=== PATIENT | male | born 1995 | race Caucasian/White ===

== ENCOUNTER 2024-01-23 20:36 | Emergency (ER) | payer BC, SELFPAY ==
[2024-01-23 20:43] VITALS: BP 140/93; BMI 30.8
--- NOTE | 2024-01-23 23:06 | ED.GENMED ---
History of Present Illness
General
Chief Complaint: Extremity Pain (non-traumatic)
Source: patient
Exam Limitations: none
Time Seen by Provider: 01/23/24 21:06
Nursing documentation reviewed up to this point in time: agreed with
History of Present Illness
History of Present Illness:
28-year-old male with past medical history of anxiety presenting to the emergency department today with concerns of right-sided heel discomfort after feeling a pop at home. He thinks it could be his Achilles. He claims that he was playing golf
today felt very tight went to stand up quickly today and felt a tearing sensation to the bottom of his posterior heel. Denies additional concerns otherwise.
Past History
Past History
ED Past Medical History: None
ED Past Surgical History: None
Social History
Tobacco: Other (Occasional cigar)
Alcohol: Occasional
Personal: Single
Living: with family
Employment: Student
Family History
Family History: Negative Diabetes, Hypertension or CAD
Review of Systems
Review of Systems
Allergies reviewed?: Yes
All Other Systems: ROS reviewed and negative except as documented in HPI and ROS
Phy Exam
Physical Exam
Physical Exam:
GENERAL: Alert , in no apparent distress
EYE: pupils equal and reactive
NECK: Supple, no significant adenopathy.
ENT: o/p clr, mmm.
CARDIAC: Regular rate and rhythm .
LUNGS: Clear breath sounds bilaterally, no acute respiratory distress, no wheezes/rales/rhonchi
ABDOMEN: Soft, without focal tenderness, no r/g, no cvat
NEUROLOGICAL: Alert and oriented, no focal neuro deficits
SKIN: Warm and dry, skin intact.
MUSCULOSKELETAL: Swelling discomfort to the right distal posterior heel no pain to the inferior aspect of to the sole increased discomfort with stretching of the Achilles there was movement of the foot with gastroc squeeze no edema, well perfused.
PSYCH: Normal and appropriate interaction.
Course
Orders/Labs/Results
Orders:
Orders
01/23/24 21:49
Calcaneus, Right 2 View [CR Heel/os Calcis - Right 2 Vw] Urgent
Comment:
Reason For Exam: right heel pain
01/23/24 23:07
Aspirin 325 mg PO NOW STA
01/23/24 23:10
Crutches-Treatment ONCE
Vital Signs
Initial and Last Documented VS:
Initial Vital Signs
Temp Pulse Resp BP Pulse Ox
98 F 92 16 140/93 98
01/23/24 20:43 01/23/24 20:43 01/23/24 20:43 01/23/24 20:43 01/23/24 20:43
Last Documented Vital Signs
Temp Pulse Resp BP Pulse Ox
98 F 92 16 140/93 98
01/23/24 20:43 01/23/24 20:43 01/23/24 20:43 01/23/24 20:43 01/23/24 20:43
Procedures
Splinting/Sling Placement
Right Ankle:
Procedure completed by: Myself
Pre-splint extermity exam: neurovascular intact
Type of splint: posterior short leg
Splint material: fiberglass
Splint checked by provider?: Yes
MDM/Problems Addressed
MDM/Problems Addressed:
28-year-old male presenting to the emergency department today with concerns of a tearing sensation to his distal Achilles region. Patient did have connection of the Achilles and negative Garcia squeeze test. Patient with likely partial Achilles
tear with description and increased discomfort with stretching of the Achilles though the Achilles is intact. Patient was placed in a plantarflexion splint advised to be nonweightbearing for now and close orthopedic follow-up for further
recommendations and assessment. Return precautions given.
*Critical Care Note
Total Time (30-74mins, 75-104mins- exclusive of procedures): Not Applicable
ED Attending Note
-
Portions of this chart may have been created with voice recognition software.� Occasional wrong word or��sound alike� substitutions may have occurred due to the inherent limitations of voice recognition software.
Discharge Plan
Departure
Patient Disposition: Home (Routine Discharge)
Date of Disposition: 01/23/24
Time of Disposition: 23:08
Patient with high blood pressure during this ER visit?: No
Condition: Good
Covid-19: Not Applicable
Discharge Problem:
Achilles rupture, right
Instructions: Achilles tendon injury
Prescriptions:
No Action
azithromycin 250 MG tablet
250 mg PO DAILY
omeprazole 20 MG capsule,delayed release(DR/EC)
20 mg PO DAILY Qty: 20 0RF
Referrals:
Thelma Jeffrey I., [Active] - Follow up in 5-7 days
Christiano Cali MD [Active] - Follow up in 5-7 days
Activity Restrictions/Additional Instructions:
You came to the emergency department with concerns of a likely injury to your Achilles tendon. Here you were given a splint. Please remain nonweightbearing until follow-up with orthopedics this week. Return to the emergency department for any
worsening, new or concerning symptoms.
Interventions
Interventions:
*Risk Screen - Suicide Last Done: 01/23/24 20:43
*General Assessment Last Done: 01/23/24 22:08
*Neglect/Abuse Screening Last Done: 01/23/24 20:43
ED- Fall Risk Assessment Last Done: 01/23/24 22:02
*ED COVID-19 Vaccine History Last Done: 01/23/24 22:08
ED-Skin Assessment Last Done: 01/23/24 22:05
ED-Peripheral Vascular Assessment Last Done: 01/23/24 22:02
ED-Musculoskeletal Assessment Last Done: 01/23/24 22:02
Discharge Date and Time
Print Language: LIBERIAN
[2024-01-23] MEDS: ASPIRIN 325 MG PO (23:14)
== END 2024-01-23 23:33 | disposition home or self-care (01) ==
LOC: EMR 20:36
PROVIDERS: EMERGENCY PHYSICIAN Emergency Medicine; FAMILY PHYSICIAN Family Medicine
DX: S86.011A Strain of right Achilles tendon, initial encounter (principal); X50.1XXA Overexertion from prolonged static or awkward postures, initial encounter
CPT/HCPCS: 99283; 29515; 73650

== ENCOUNTER 2024-01-25 18:49 | Emergency (ER) | payer BC, SELFPAY ==
[2024-01-25 18:52] VITALS: BP 146/100
--- NOTE | 2024-01-25 20:52 | ED.GENMED ---
History of Present Illness
General
Chief Complaint: Musculo-Skeletal Complaint
Source: patient
Time Seen by Provider: 01/25/24 20:29
History of Present Illness
History of Present Illness:
28-year-old male presenting emergency department for reevaluation after he was diagnosed with a suspected partial right Achilles tendon rupture last week. Patient states that he was placed in a splint and was recommended to follow-up with
orthopedics and he was able to make an appointment for this coming Thursday with Dr. Cali at [facility]. Patient states he has been taking aspirin for pain and had a leftover oxycodone from a previous injury which she took last night and
today but with minimal relief of pain. He denies any new symptoms or injuries. He is also denying any focal weakness or numbness paresthesia or numbness, color changes to the extremity. He notes pain does seem to be somewhat improved with his leg
being elevated.
Past History
Past History
ED Past Medical History: Psychiatric
ED Past Surgical History: None
Social History
Tobacco: Other (Occasional cigar)
Alcohol: Occasional
Drug: None
Personal:
Living: with family
Employment: Student
Family History
Family History: Negative Diabetes, Hypertension or CAD
Review of Systems
Review of Systems
All Other Systems: ROS reviewed and negative except as documented in HPI and ROS
Phy Exam
Physical Exam
Physical Exam:
GENERAL: Alert , in no apparent distress but does appear uncomfortable
EYE: conjunctiva clear
Head: Normocephalic atraumatic
NECK: Supple,
ENT: mmm.
LUNGS: no acute respiratory distress
NEUROLOGICAL: Alert and oriented
SKIN: Warm and dry, skin intact.
MUSCULOSKELETAL: Right lower extremity: Posterior short leg splint in place. Moderate soft tissue swelling around the ankle noted. Cap refills less than 2 seconds. Sensation grossly intact to light touch. Patient is able to range of motion
digits without any difficulty. Palpable pedal pulse
PSYCH: Normal and appropriate interaction.
Scores
Heart Failure Risk
Heart Failure Risk Score: Not Applicable
Heart Score for Chest Pain Patients
STEMI patient?: Not applicable
Withdrawal Assessment of Alcohol
Withdrawal Assessment Completed?: Not applicable
Course
Orders/Labs/Results
Orders:
Orders
01/25/24 20:42
Ibuprofen [Motrin] 800 mg PO NOW STA
Oxycodone/Acetaminophen [Percocet 5/325] 1 tablet PO NOW STA
Vital Signs
Initial and Last Documented VS:
Initial Vital Signs
Temp Pulse Resp BP Pulse Ox
97.5 F 91 18 146/100 99
01/25/24 18:52 01/25/24 18:52 01/25/24 18:52 01/25/24 18:52 01/25/24 18:52
Last Documented Vital Signs
Temp Pulse Resp BP Pulse Ox
97.5 F 91 18 146/100 99
01/25/24 18:52 01/25/24 18:52 01/25/24 18:52 01/25/24 18:52 01/25/24 18:52
MDM/Problems Addressed
Differential Diagnosis Includes:
Achilles tendon rupture, gastrocnemius muscle strain, soleus muscle strain, no concern for fracture or compartment syndrome
MDM/Problems Addressed:
28-year-old male presenting to the emergency department for evaluation of worsening pain to the right lower extremity in the setting of a recent injury and suspect Achilles tendon rupture. Patient was able to make an appointment with Ortho for this
coming Thursday. He has been taking aspirin for pain and did take 2 separate doses of an leftover oxycodone with minimal relief. Advised instead of taking aspirin he take Motrin/ibuprofen. Will provide with a new prescription for oxycodone.
Advised continued ice and elevation. Continue follow-up with orthopedics as scheduled. Aware of return precautions to ER but otherwise stable for discharge home. I did also unwrap patient's splint and rewrapped and patient notes this seemed to
somewhat improve his symptoms as well.
*Pulse Oximetry
Patient hypoxic: no
*Critical Care Note
Total Time (30-74mins, 75-104mins- exclusive of procedures): Not Applicable
Data Reviewed
Review of Other/Old Records Reveals: Radiology Studies
Source: patient and spouse
ED Attending Note
-
Portions of this chart may have been created with voice recognition software.� Occasional wrong word or��sound alike� substitutions may have occurred due to the inherent limitations of voice recognition software.
Discharge Plan
Departure
Patient Disposition: Home (Routine Discharge)
Date of Disposition: 01/25/24
Time of Disposition: 20:52
Patient with high blood pressure during this ER visit?: Yes
Discharge Problem:
Rupture of right Achilles tendon
Instructions: Achilles Tendon Rupture (DC)
Prescriptions:
New
oxycodone-acetaminophen [Percocet] 5-325 mg tablet
1 tab PO Q6HPRN PRN (Reason: pain) Qty: 8 0RF
No Action
azithromycin 250 MG tablet
250 mg PO DAILY
omeprazole 20 MG capsule,delayed release(DR/EC)
20 mg PO DAILY Qty: 20 0RF
Referrals:
Jr Che MD [Family Provider] -
Interventions
Interventions:
*Risk Screen - Suicide Last Done: 01/25/24 20:06
*General Assessment Last Done: 01/25/24 20:06
*Neglect/Abuse Screening Last Done: 01/25/24 20:06
*Nursing Disposition Last Done: 01/25/24 21:01
ED-Musculoskeletal Assessment Last Done: 01/25/24 20:06
Discharge Date and Time
Print Language: GREENLANDIC
[2024-01-25] MEDS: PERCOCET 5/325 1 TABLET PO (20:53)
[2024-01-25] MEDS: MOTRIN 800 MG PO (20:53)
[2024-01-25 21:00] VITALS: BP 149/100
[2024-01-25 21:01] VITALS: BP 149/100
== END 2024-01-25 21:02 | disposition home or self-care (01) ==
LOC: EMR 18:49
PROVIDERS: EMERGENCY PHYSICIAN Emergency Medicine; FAMILY PHYSICIAN Family Medicine
DX: S86.011A Strain of right Achilles tendon, initial encounter (principal); M25.471 Effusion, right ankle; M79.604 Pain in right leg; X58.XXXA Exposure to other specified factors, initial encounter; R03.0 Elevated blood-pressure reading, without diagnosis of hypertension; F17.290 Nicotine dependence, other tobacco product, uncomplicated
CPT/HCPCS: 99283

== ENCOUNTER → 2024-09-26 11:27 | Outpatient (REF) | payer BC, SELFPAY | LOC: DHSLP 11:27 | PROVIDERS: ATTENDING PHYSICIAN Internal Medicine Critical Care Medicine | DX: G47.30 Sleep apnea, unspecified (principal); R06.83 Snoring | CPT/HCPCS: 95800 ==

== ENCOUNTER 2025-06-05 14:00 | Emergency (ER) | payer BC, SELFPAY ==
[2025-06-05 14:09] VITALS: BP 120/92
--- NOTE | 2025-06-05 14:29 | ED.GENMED ---
History of Present Illness
General
Chief Complaint: Anxiety
Source: patient and spouse
Exam Limitations: none
Time Seen by Provider: 06/05/25 14:15
History of Present Illness
History of Present Illness:
29-year-old male complaining of episodes of muscle spasm. Appears to be mostly arms and chest. Although slightly the legs. These happen out of the blue and have been going on for about an hour. They come and go. Patient feels fine between
episodes. He is under significant stress. He did take an Ativan that he takes occasionally with possible slight relief. No other unusual symptoms denying headache chest pain shortness of breath fever chills rigors or any other complaints.
Past History
Past History
ED Past Medical History: Psychiatric
ED Past Surgical History: None
Social History
Tobacco: Other (Occasional cigar)
Alcohol: Occasional
Drug: None
Personal:
Living: with family
Employment: Student
Family History
Family History: Negative Diabetes, Hypertension or CAD
Review of Systems
Review of Systems
All Other Systems: Not applicable
Constitutional: Denies fever or chills
Respiratory: Reports no symptoms
Cardiac: Reports no symptoms
ABD/GI: Reports no symptoms
Phy Exam
Physical Exam
Physical Exam:
GENERAL: Alert and oriented in no apparent distress
EYE: Orbits normal.
NECK: Supple, nontender
CARDIAC: Regular rate and rhythm without any obvious murmurs.
LUNGS: Clear breath sounds,normal
ABDOMEN: Soft, without focal tenderness or distention
NEUROLOGICAL: Alert and oriented , grossly non-focal. Speech normal. No unusual or hyper patellar reflexes. No clonus. No rigidity. Patient had 2 episodes while I was in the room and remained awake during these of clenching of both hands
flexion of the hip and chest area consistent with a general spasm like episode. He appeared well during the spells.
SKIN: Warm and dry, no rash or lesion, no discoloration, skin intact.
MUSCULOSKELETAL: No edema,no deformity.Good color
PSYCH: Normal and appropriate interaction.
Course
Orders/Labs/Results
Orders:
Orders
06/05/25 14:24
IV Insert/Care/Rem.- Treatment PRN
0.9% Sodium Chloride 1000 ml [Nss] 1,000 ml IV BOLUS
06/05/25 14:25
diazePAM [Valium Injection] 2 mg IV NOW STA
06/05/25 14:39
Basic Metabolic Panel Urgent
Complete Blood Count/With Diff Urgent
Magnesium Urgent
Phos [Phosphorus] Urgent
TSH Reflex To Free T4 Urgent
06/05/25 15:26
diazePAM [Valium Injection] 2 mg IV NOW STA
06/05/25 14:39
06/05/25 14:39
Vital Signs
Initial and Last Documented VS:
Initial Vital Signs
Temp Pulse Resp BP Pulse Ox
98.0 F 86 16 120/92 98
06/05/25 14:09 06/05/25 14:09 06/05/25 14:09 06/05/25 14:09 06/05/25 14:09
Last Documented Vital Signs
Temp Pulse Resp BP Pulse Ox
98.0 F 77 16 120/92 97
06/05/25 14:09 06/05/25 15:10 06/05/25 15:10 06/05/25 14:09 06/05/25 15:10
MDM/Problems Addressed
MDM/Problems Addressed:
Patient started about 1 hour ago with intermittent episodes of brief general spasms of his muscles. Between episodes he feels fine. His exam is unremarkable. Differential would include all anxiety or panic although I do not want to assume this.
Would also consider electrolyte abnormality hypercalcemia although no [place] sign. Potassium or electrolyte abnormality. Checking potassium sodium phosphorus and magnesium. Check TSH. He has had significant weight loss in the last year. He
has attributed this to stress but we will check a TSH. Highly doubt a serotonin syndrome. He has no other symptoms that would go along with this. He has no fever no general rigidity no confusion no tachycardia.
*Pulse Oximetry
SaO2: 98
Oxygen Mode of Delivery: Room air
Patient hypoxic: no (98)
*Critical Care Note
Total Time (30-74mins, 75-104mins- exclusive of procedures): Not Applicable
Update Note
Update Note:
Patient states he did well with the Valium. He has not had any further episodes. I cannot find a serious etiology. I did review with psychiatry whether the Cymbalta could cause this. Highly unlikely. He is not not describing any other symptoms
consistent with serotonin syndrome. Will give a small prescription for Valium both as a muscle relaxer and for anxiety and follow-up.
Patient is only given a second dose of Valium just to help prevent this from recurring. He actually appears well at this time
ED Attending Note
-
Portions of this chart may have been created with voice recognition software.� Occasional wrong word or��sound alike� substitutions may have occurred due to the inherent limitations of voice recognition software.
Discharge Plan
Departure
Patient Disposition: Home (Routine Discharge)
Date of Disposition: 06/05/25
Time of Disposition: 15:27
Patient with high blood pressure during this ER visit?: Yes
Discharge Problem:
Episodic muscle spasms, Anxiety
Instructions: Anxiety, Adult (DC), Muscle spasms (muscle cramps), BLOOD PRESSURE
Prescriptions:
New
diazepam [Valium] 5 mg tablet
5 mg PO Q8H PRN (Reason: muscle spasms) Qty: 10 0RF
No Action
azithromycin 250 MG tablet
250 mg PO DAILY
omeprazole 20 MG capsule,delayed release(DR/EC)
20 mg PO DAILY Qty: 20 0RF
oxycodone-acetaminophen [Percocet] 5-325 mg tablet
1 tab PO Q6HPRN PRN (Reason: pain) Qty: 8 0RF
Referrals:
Jr Che MD [Family Provider, [facility]] - Follow up in 2-3 days
Stand Alone Forms: Return to Work
Activity Restrictions/Additional Instructions:
Follow-up closely with your primary physician
If you elect to take the Valium do not take your Ativan
Try to use it sparingly
As we discussed, return with any concerning symptoms including worsening spasms fever change in mental status or any other concerning symptoms
Interventions
Interventions:
*Risk Screen - Suicide Last Done: 06/05/25 14:09
*General Assessment Last Done: 06/05/25 14:09
*Neglect/Abuse Screening Last Done: 06/05/25 14:09
*Nursing Disposition Last Done: 06/05/25 15:49
ED-Psychological Assessment Last Done: 06/05/25 14:38
Discharge Date and Time
Discharge Date/Time: 06/05/25 15:49
Print Language: SLOVENIAN
[2025-06-05 14:45] LABS: Hematocrit 46.0 % (39.0-52.0); Hemoglobin 15.6 g/dL (13.0-18.0); Mean Corp Hgb Conc. 33.9 g/dL (33.0-37.0); Mean Corpuscular Volume 86.6 fL (80.0-94.0); Nucleated Red Blood Cells % 0 % (-); Platelet Count 329 10^3/uL (130-400); Red Cell Dist. Width 12.4 % (11.5-14.5)
[2025-06-05] MEDS: VALIUM INJECTION 2 MG IV ×2 (14:45→15:33)
[2025-06-05] MEDS: NSS 1000 IV (14:48)
[2025-06-05 15:12] LABS: Blood Urea Nitrogen 11 mg/dl (9-20); Calcium 9.9 mg/dl (8.4-10.2); Carbon Dioxide 27 mmol/L (22-30); Chloride 103 mmol/L (98-107); Glucose 86 mg/dl (70-99); Magnesium 2.1 mg/dl (1.6-2.3); Potassium 4.1 mmol/L (3.5-5.1); Sodium 140 mmol/L (135-145); eGFR > 60.00
== END 2025-06-05 15:49 | disposition home or self-care (01) ==
LOC: EMR 14:00
PROVIDERS: EMERGENCY PHYSICIAN Emergency Medicine; FAMILY PHYSICIAN Family Medicine
DX: M62.838 Other muscle spasm (principal); F41.9 Anxiety disorder, unspecified; F17.290 Nicotine dependence, other tobacco product, uncomplicated
CPT/HCPCS: 99283; 96374; 96376; 96361; 80048; 83735; 84100; 84443; 85025

== ENCOUNTER 2025-06-05 17:39 | Emergency (ER) | payer BC, SELFPAY ==
[2025-06-05 17:41] VITALS: BP 132/97
[2025-06-05] MEDS: NSS 500 IV (19:01)
[2025-06-05] MEDS: ZOFRAN 4 MG IV (19:01)
[2025-06-05] MEDS: OFIRMEV 100 IV (19:02)
--- NOTE | 2025-06-05 19:43 | ED.GENMED ---
History of Present Illness
<Jozef Pereyra MD - Last Filed: 06/05/25 20:53>
General
Chief Complaint: Anxiety
Source: patient
Exam Limitations: none
Time Seen by Provider: 06/05/25 18:34
History of Present Illness
History of Present Illness:
Patient returns now complaining of a headache. Headache started a few hours ago. Relatively diffuse across the frontal head. No thunderclap headache. Some nausea with this. No neck pain. Spasms that he was having earlier are actually improved
mildly per the patient no fever photophobia or other complaints
Past History
<Jozef Pereyra MD - Last Filed: 06/05/25 20:53>
Past History
ED Past Medical History: Psychiatric
ED Past Surgical History: None
Social History
Tobacco: Other (Occasional cigar)
Alcohol: Occasional
Drug: None
Personal:
Living: with family
Employment: Student
Family History
Family History: Negative Diabetes, Hypertension or CAD
Review of Systems
<Jozef Pereyra MD - Last Filed: 06/05/25 20:53>
Review of Systems
All Other Systems: Not applicable
Constitutional: Denies fever or chills
Respiratory: Reports no symptoms
Cardiac: Reports no symptoms
Phy Exam
<Jozef Pereyra MD - Last Filed: 06/05/25 20:53>
Physical Exam
Physical Exam:
GENERAL: Alert and oriented in no apparent distress
EYE: Orbits normal. This sharp. Extraocular muscles intact.
NECK: Supple, no significant adenopathy.
ENT: Pharynx without erythema
CARDIAC: Regular rate and rhythm without any obvious murmurs.
LUNGS: Clear breath sounds,normal
ABDOMEN: Soft, without focal tenderness or distention
NEUROLOGICAL: Alert and oriented , grossly non-focal. Speech normal. No facial droop. Nonfocal.
SKIN: Warm and dry
PSYCH: Normal and appropriate interaction.
Course
<Jozef Pereyra MD - Last Filed: 06/05/25 20:53>
Orders/Labs/Results
Orders:
Orders
06/05/25 18:50
Cardiac Monitoring- Treatment ONCE
0.9% Sodium Chloride 500 ml [Nss] 500 ml IV BOLUS
Acetaminophen 1000MG/100Ml [Ofirmev] 1,000 mg in 100 ml IV ONCE
Acetaminophen IV Indication:: ED Narcotic Naive Pt-ONCE
Ondansetron Injectable [Zofran] 4 mg IV NOW STA
Pulse Ox/cont/shift [RESP] Stat
Quantity: 1
06/05/25 18:51
CT Head W/o Iv Contrast Urgent
Comment:
Reason For Exam: Diffuse sudden headache
06/05/25 19:34
Ceribell [Rapid Point of Care EEG (ED/ICU ONLY)] Q1H
Indications for use:: Other
06/05/25 20:01
Ketorolac [Toradol] 15 mg IV NOW STA
06/05/25 20:36
Diphenhydramine [Benadryl] 25 mg IV NOW STA
Diphenhydramine [Benadryl] 50 mg .ROUTE .STK-MED ONE
Vital Signs
Initial and Last Documented VS:
Initial Vital Signs
Temp Pulse Resp BP Pulse Ox
97.8 F 95 20 132/97 100
06/05/25 17:41 06/05/25 17:41 06/05/25 17:41 06/05/25 17:41 06/05/25 17:41
Last Documented Vital Signs
Temp Pulse Resp BP Pulse Ox
97.8 F 62 15 138/83 96
06/05/25 17:41 06/05/25 22:15 06/05/25 22:15 06/05/25 22:31 06/05/25 22:15
<Kaela Nichole MD - Last Filed: 06/05/25 23:57>
Orders/Labs/Results
Orders:
Orders
06/05/25 18:50
Cardiac Monitoring- Treatment ONCE
0.9% Sodium Chloride 500 ml [Nss] 500 ml IV BOLUS
Acetaminophen 1000MG/100Ml [Ofirmev] 1,000 mg in 100 ml IV ONCE
Acetaminophen IV Indication:: ED Narcotic Naive Pt-ONCE
Ondansetron Injectable [Zofran] 4 mg IV NOW STA
Pulse Ox/cont/shift [RESP] Stat
Quantity: 1
06/05/25 18:51
CT Head W/o Iv Contrast Urgent
Comment:
Reason For Exam: Diffuse sudden headache
06/05/25 19:34
Ceribell [Rapid Point of Care EEG (ED/ICU ONLY)] Q1H
Indications for use:: Other
06/05/25 20:01
Ketorolac [Toradol] 15 mg IV NOW STA
06/05/25 20:36
Diphenhydramine [Benadryl] 25 mg IV NOW STA
Diphenhydramine [Benadryl] 50 mg .ROUTE .STK-MED ONE
Vital Signs
Initial and Last Documented VS:
Initial Vital Signs
Temp Pulse Resp BP Pulse Ox
97.8 F 95 20 132/97 100
06/05/25 17:41 06/05/25 17:41 06/05/25 17:41 06/05/25 17:41 06/05/25 17:41
Last Documented Vital Signs
Temp Pulse Resp BP Pulse Ox
97.8 F 62 15 138/83 96
06/05/25 17:41 06/05/25 22:15 06/05/25 22:15 06/05/25 22:31 06/05/25 22:15
<Jozef Pereyra MD - Last Filed: 06/05/25 20:53>
MDM/Problems Addressed
Differential Diagnosis Includes:
Patient now complaining of a headache associated with these earlier symptoms. His exam is unremarkable. Nonfocal. Supple neck. No infectious symptoms. With unusual headache will get a CT scan to rule out bleed. Clinical suspicion is low
however. If his CT is negative within 6 hours would have a very low suspicion for intracerebral hemorrhage. Will also place ceribell with the spasm-like's episode
<Jozef Pereyra MD - Last Filed: 06/05/25 20:53>
*Radiology
Radiology exam reviewed: radiology read reviewed (Negative)
*Pulse Oximetry
SaO2: 100
Oxygen Mode of Delivery: Room air
Patient hypoxic: no
<Kaela Nichole MD - Last Filed: 06/05/25 23:57>
*Critical Care Note
Total Time (30-74mins, 75-104mins- exclusive of procedures): Not Applicable
<Jozef Pereyra MD - Last Filed: 06/05/25 20:53>
Update Note
Update Note:
Patient is remained stable and nontoxic. No sign of seizure activity on Ceribell.... He did have 1 episode when I was in the room. We will continue to observe him on the Ceribell. He is offered admission and observation although I cannot find a
serious explanation for his symptoms at this time.
<Kaela Nichole MD - Last Filed: 06/05/25 23:57>
Update Note
Update Note:
Patient is remained stable and nontoxic. No sign of seizure activity on Ceribell.... He did have 1 episode when I was in the room. We will continue to observe him on the Ceribell. He is offered admission and observation although I cannot find a
serious explanation for his symptoms at this time.
10:15 PM patient is resting comfortably and there has been no sign of seizure activity. Patient feels well and would like to go home. Patient assures me he will call his primary care doctor for follow-up
ED Attending Note
<Jozef Pereyra MD - Last Filed: 06/05/25 20:53>
-
Portions of this chart may have been created with voice recognition software.� Occasional wrong word or��sound alike� substitutions may have occurred due to the inherent limitations of voice recognition software.
Discharge Plan
Departure
Patient Disposition: Home (Routine Discharge)
Date of Disposition: 06/05/25
Time of Disposition: 22:25
Patient with high blood pressure during this ER visit?: Yes
Condition: Good
Discharge Problem:
Intermittent muscle spasms, Headache
Instructions: Anxiety, Adult (DC), Headaches in adults, Muscle spasms (muscle cramps), BLOOD PRESSURE
Prescriptions:
No Action
azithromycin 250 MG tablet
250 mg PO DAILY
omeprazole 20 MG capsule,delayed release(DR/EC)
20 mg PO DAILY Qty: 20 0RF
oxycodone-acetaminophen [Percocet] 5-325 mg tablet
1 tab PO Q6HPRN PRN (Reason: pain) Qty: 8 0RF
diazepam [Valium] 5 mg tablet
5 mg PO Q8H PRN (Reason: muscle spasms) Qty: 10 0RF
Referrals:
Jr Che MD [Family Provider, Family Practice] - Follow up in 2-3 days
Activity Restrictions/Additional Instructions:
Please return immediately with any progression of symptoms or if they have not resolved in the next 1 to 2 days
Interventions
Interventions:
*General Assessment Last Done: 06/05/25 17:41
*Neglect/Abuse Screening Last Done: 06/05/25 17:41
*Nursing Disposition Last Done: 06/05/25 22:31
ED-Psychological Assessment Last Done: 06/05/25 18:30
Discharge Date and Time
Discharge Date/Time: 06/05/25 22:31
Print Language: BENGALI
[2025-06-05] MEDS: TORADOL 15 MG IV (20:35)
[2025-06-05] MEDS: BENADRYL 25 MG IV (20:37)
[2025-06-05 22:31] VITALS: BP 138/83
--- NOTE | 2025-06-06 10:15 | W.RAPID.EEG ---
Rapid EEG
-
Procedure Date: 06/05/25
Patient Status: Emergency Room
Results:
Impression:
No evidence of status epilepticus
Recording Information:
Diagnostic Recording Time: 02:19:15 (139 minutes)
Recording 1:
Start Time: Jun 05, 2025 20:08 PM End Time: Jun 05, 2025 22:27 PM
Recording Technique: This EEG was obtained using a 10 lead, 8 channel system positioned circumferentially without any parasagittal coverage (rapid EEG). Computer selected EEG is reviewed as well as background features and all clinically significant
events. Clarity algorithm utilized and implemented to provide analysis of underlying activity and seizure detection used to facilitate reading. ICD-10 Code DT52Y23
Clinical History: DIANA OLSON is a 29 year old Prior Seizure patient undergoing EEG to screen for non-convulsive status epilepticus.
Disclaimer: EEG findings should be interpreted in the context of clinical history and other tests. A normal EEG does not rule out epilepsy or other conditions, and an abnormal EEG is not diagnostic on its own. Technical factors may affect
interpretation. Clinical context is required.
== END 2025-06-05 22:31 | disposition home or self-care (01) ==
LOC: EMR 17:39
PROVIDERS: EMERGENCY PHYSICIAN Emergency Medicine; FAMILY PHYSICIAN Family Medicine
DX: F41.9 Anxiety disorder, unspecified (principal); F17.290 Nicotine dependence, other tobacco product, uncomplicated
CPT/HCPCS: 99284; 96374; 96375; 96361; 70450

== ENCOUNTER 2025-07-15 21:42 | Emergency (ER) | payer BC, SELFPAY ==
[2025-07-15 21:48] VITALS: BP 137/89
--- NOTE | 2025-07-15 22:49 | ED.GENMED ---
History of Present Illness
General
Chief Complaint: Abdominal Symptoms
Source: patient
Time Seen by Provider: 07/15/25 22:40
History of Present Illness
History of Present Illness:
This patient is a 29-year-old male presents emergency department with complaints of feeling like his stomach is 'turning' associated with repeated episodes of nonbloody vomiting and nonbloody diarrhea. With this, he states that he feels very
lightheaded and dizzy and thinks he is dehydrated. Symptoms started approximately 4 hours prior to presentation. He denies fever, chills, chest pain, shortness of breath. He notes discomfort in the mid abdomen now radiating more so to the right
side. This is constant without exacerbating or relieving factors. He denies flank or back pain, urinary symptoms, recent spoiled food, recent sick contacts, recent travel. Patient uses marijuana nearly every day most recently earlier today.
Past History
Past History
ED Past Medical History: Psychiatric
ED Past Surgical History: None
Social History
Tobacco: Smoker (Occasional cigar)
Alcohol: Occasional
Drug: Marijuana
Personal:
Living: with family
Employment: Student
Family History
Family History: Negative Diabetes, Hypertension or CAD
Phy Exam
Physical Exam
Physical Exam:
GENERAL: Alert , restless, appears uncomfortable
EYE: pupils equal and reactive
NECK: Supple, no significant adenopathy.
ENT: o/p clr, mm dry.
CARDIAC: Regular rate and rhythm .
LUNGS: Clear breath sounds bilaterally, no acute respiratory distress, no wheezes/rales/rhonchi
ABDOMEN: Soft, diffuse lower abdominal tenderness, no r/g, no cvat
NEUROLOGICAL: Alert and oriented, no focal neuro deficits
SKIN: Warm and dry, skin intact.
MUSCULOSKELETAL: No edema, well perfused.
PSYCH: Normal and appropriate interaction.
Course
Orders/Labs/Results
Orders:
Orders
07/15/25 21:53
EKG [Electrocardiogram (*1)] Urgent
Reason for Study: Shortness of Breath
EKG- Treatment ONCE
07/15/25 22:46
Cardiac Monitoring- Treatment ONCE
0.9% Sodium Chloride 1000 ml [Nss] 1,000 ml IV BOLUS
Morphine Sulfate 4 mg IV NOW STA
droPERidol [Inapsine] 1.25 mg IV NOW STA
07/15/25 23:13
Complete Blood Count/No Diff Urgent
Comprehensive Metabolic Panel Urgent
Lipase Urgent
07/16/25 00:03
CT Abd/Pel (IV only)-DH only Urgent
Reason For Exam: n/v/d/lower abd pain
07/16/25 00:19
0.9% Sodium Chloride 1000 ml [Nss] 1,000 ml IV BOLUS
07/16/25 02:32
Stool Culture Urgent
YOVANI Source: Feces/Stool
Specimen Description:
Date Specimen was Collected: 07/16/25
Time Specimen was Collected: 02:28
Abnormal Lab Results
07/15/25
23:13
WBC 20.4 H 10^3/uL
(4.8-10.8)
Plt Count 496 H 10^3/uL
(130-400)
Carbon Dioxide 19 L mmol/L
(22-30)
Glucose 128 H mg/dl
(70-99)
Calcium 11.0 H mg/dl
(8.4-10.2)
Total Bilirubin 2.1 H mg/dl
(0.2-1.3)
Total Protein 9.6 H g/dl
(6.3-8.2)
Albumin 5.7 H g/dl
(3.5-5.0)
07/15/25 23:13
07/15/25 23:13
Vital Signs
Initial and Last Documented VS:
Initial Vital Signs
Pulse Resp BP Pulse Ox
112 20 137/89 97
07/15/25 21:48 07/15/25 21:48 07/15/25 21:48 07/15/25 21:48
Last Documented Vital Signs
Temp Pulse Resp BP Pulse Ox
98.5 F 112 20 141/94 100
07/15/25 21:54 07/15/25 21:48 07/15/25 21:48 07/16/25 02:34 07/16/25 02:34
*Pulse Oximetry
SaO2: 97
Oxygen Mode of Delivery: Room air
Patient hypoxic: no
*Critical Care Note
Total Time (30-74mins, 75-104mins- exclusive of procedures): Not Applicable
Update Note
Update Note:
Patient presents to the Emergency Department with __abdominal pain nausea vomiting diarrhea
Number and Complexity of Problems Addressed at the Encounter
� Chronic conditions affecting care:
� Acute Exacerbation and/or Progression of Chronic Illness:
� Differential Diagnosis includes: But not limited to norovirus, gastroenteritis, colitis, bowel obstruction, CHS, CVS, etc. etc. etc.
Amount and/or Complexity of Data to be Reviewed and Analyzed
� I performed an independent evaluation of and my interpretation is:
EKG:
CT: Vision read small large bowel relatively decompressed with some fluid-filled loops of bowel possibly physiologic versus related to diarrhea and vomiting. Wall thickness is possibly related to his contracted state versus
mild enterocolitis. Small mesenteric lymph nodes no inflammation gallbladder kidneys and appendix are
Xrays:
Laboratory Studies: Leukocytosis noted which may be related to vomiting, thrombocytosis minimal metabolic acidosis without anion gap, nonspecific bilirubin elevation, lipase normal
Other:
� Review of other/old records reveals:
� Clinical information was obtained by an independent historian:
� Prescriptions/Medications Considered but not given:
� Further testing considered but not performed:
Risk of Complications and/or Morbidity or Mortality of Patient Management
� Social determinants of health affecting care:
� Discussion with other providers (PCP, Hospitalists, Consultants, etc):
� Escalation of care including admission/observation vs risk of discharge considered: 12:19 AM reassessment patient resting comfortably, feels remarkably better, no further nausea or vomiting, abdominal pain has resolved.
Awaiting CT
2:20 AM patient feels remarkably better. He was able to tolerate liquids here and would like to go home. He denies abdominal pain or nausea. Workup noted. I suspect white blood cell count elevation related to patient's vomiting, no
intra-abdominal pathology noted to suggest more worrisome etiology. Although patient is at risk for CHS, the associated diarrhea that he had makes this less likely, and more likely to be gastroenteritis/colitis. Discussed with patient portance of
follow-up and reasons return to the ER.
ED Attending Note
-
Portions of this chart may have been created with voice recognition software.� Occasional wrong word or��sound alike� substitutions may have occurred due to the inherent limitations of voice recognition software.
Discharge Plan
Departure
Patient Disposition: Home (Routine Discharge)
Date of Disposition: 07/16/25
Time of Disposition: 02:21
Patient with high blood pressure during this ER visit?: Yes
Condition: Good
Discharge Problem:
Abdominal pain, Nausea vomiting and diarrhea
Instructions: Diarrhea in teens and adults, Nausea and Vomiting, Adult (DC), Abdominal Pain, BLOOD PRESSURE
Prescriptions:
New
ondansetron HCl 4 mg tablet
4 mg PO DAILY PRN (Reason: nausea and vomiting) Qty: 4 0RF
No Action
azithromycin 250 MG tablet
250 mg PO DAILY
omeprazole 20 MG capsule,delayed release(DR/EC)
20 mg PO DAILY Qty: 20 0RF
oxycodone-acetaminophen [Percocet] 5-325 mg tablet
1 tab PO Q6HPRN PRN (Reason: pain) Qty: 8 0RF
diazepam [Valium] 5 mg tablet
5 mg PO Q8H PRN (Reason: muscle spasms) Qty: 10 0RF
Referrals:
UNKNOWN,NO INTERVIEW [Family Provider]
Activity Restrictions/Additional Instructions:
IF YOU DEVELOP FEVER, RECURRENT ABDOMINAL PAIN, DIZZINESS, CHEST PAIN, SHORTNESS OF BREATH, REPEATED VOMITING, BLEEDING, GET WORSE, OR OTHER WORRISOME PLEASE RETURN TO THE ER IMMEDIATELY!
Interventions
Interventions:
*General Assessment Last Done: 07/15/25 23:24
*Neglect/Abuse Screening Last Done: 07/15/25 21:55
*ED COVID-19 Vaccine History Last Done: 07/15/25 23:24
*ED Influenza Vaccine History Last Done: 07/15/25 23:24
[facility] Risk Assessment Tool Last Done: 07/15/25 23:45
*Risk Screen - Suicide (C-SSRS) Last Done: 07/15/25 21:48
*Nursing Disposition Last Done: 07/16/25 02:42
QS-Hreega-Hksgabpcrf Assessment Last Done: 07/15/25 23:45
Discharge Date and Time
Discharge Date/Time: 07/16/25 02:46
Print Language: KAZAKH
[2025-07-15] MEDS: INAPSINE 1.25 MG IV (23:18)
[2025-07-15] MEDS: MORPHINE SULFATE 4 MG IV (23:19)
[2025-07-15] MEDS: NSS 1000 IV (23:19)
[2025-07-15 23:24] VITALS: BMI 27.8
[2025-07-15 23:30] LABS: Hematocrit 48.6 % (39.0-52.0); Hemoglobin 17.4 g/dL (13.0-18.0); Mean Corp Hgb Conc. 35.8 g/dL (33.0-37.0); Mean Corpuscular Volume 82.7 fL (80.0-94.0); Platelet Count 496 10^3/uL (130-400); Red Cell Dist. Width 12.5 % (11.5-14.5)
[2025-07-15 23:53] LABS: ALT (SGPT) 21 U/L (0-50); AST (SGOT) 21 U/L (17-59); Albumin 5.7 g/dl (3.5-5.0); Alkaline Phosphatase 73 U/L (38-126); Blood Urea Nitrogen 18 mg/dl (9-20); Calcium 11.0 mg/dl (8.4-10.2); Carbon Dioxide 19 mmol/L (22-30); Chloride 102 mmol/L (98-107); Estimated Creatinine Clearance > 125 ml/min; Glucose 128 mg/dl (70-99); Lipase 67 U/L (23-300); Potassium 4.5 mmol/L (3.5-5.1); Sodium 139 mmol/L (135-145); Total Protein 9.6 g/dl (6.3-8.2); eGFR > 60.00
[2025-07-16] MEDS: NSS 1000 IV (00:30)
--- NOTE | 2025-07-16 00:30 | EDRN ---
patient reports feeling much better at this time, 2nd liter of fluids hung, call kenyon in reach.
[2025-07-16 02:34] VITALS: BP 141/94
== END 2025-07-16 02:46 | disposition home or self-care (01) ==
LOC: EMR 21:42
PROVIDERS: EMERGENCY PHYSICIAN Emergency Medicine
DX: R10.30 Lower abdominal pain, unspecified (principal); R11.2 Nausea with vomiting, unspecified; R19.7 Diarrhea, unspecified; R03.0 Elevated blood-pressure reading, without diagnosis of hypertension; F12.90 Cannabis use, unspecified, uncomplicated; F17.290 Nicotine dependence, other tobacco product, uncomplicated
CPT/HCPCS: 99284; 96374; 96375; 96361 ×2; 74177; 80053; 83690; 85027; 87045; 87046; 87427; 93005; J1790; Q9967